=== PATIENT | female | born 1955 | race African-American/Black ===

== ENCOUNTER 2017-07-07 15:18 | Emergency (ER) | payer BC, MEDICAID ==
[~2017-07-07] VITALS: Ht 160 cm; Wt 90.9 kg
[~2017-07-07 15:18] MED LIST: ALBU8.5H IH; ASA3 PO; LISI-661 PO; SYMB8060 IH; TRAZ-144 PO
[2017-07-07] MEDS ORDERED: IPRATROPIUM BROMIDE 0.5 MG/2.5 ML NEB SOLUTION NEB ONE (17:15)
[2017-07-07] MEDS ORDERED: ALBUTEROL SULFATE 2.5 MG/0.5 ML NEB SOLUTION NEB ONE (17:15)
[2017-07-07] MEDS ORDERED: 0.9% SODIUM CHLORIDE 5 ML NEB SOLUTION NEB ONE (17:16)
[2017-07-07] MEDS ORDERED: ALBUTEROL SULFATE HFA 90 MCG/PUFF 8 GM INHALER IH ONE (17:30)
[2017-07-07 18:34] VITALS: BP 155/89
== END 2017-07-07 18:36 | disposition home or self-care (01) ==
LOC: EMS 15:19
DX: J45.909 Unspecified asthma, uncomplicated (principal); L85.3 Xerosis cutis; I10 Essential (primary) hypertension; Z79.82 Long term (current) use of aspirin; Z79.899 Other long term (current) drug therapy
CPT/HCPCS: 94640; 99284; J7613; J3535

== ENCOUNTER 2017-08-18 12:35 | Emergency (ER) | payer BC, OTHER ==
[~2017-08-18] VITALS: Ht 162.6 cm; Wt 81.8 kg
[~2017-08-18 12:35] MED LIST changes: -ALBU8.5H IH; +ALBU8.5H8 IH; -ASA3 PO; +ASPI-989 PO
[2017-08-18 13:17] LABS: BASOPHILS % (AUTO) 0.5 % (0.0-2.0); EOSINOPHILS % (AUTO) 2.9 % (1.0-6.0); HEMATOCRIT 40.1 % (36-46); HEMOGLOBIN 13.5 g/dL (12.0-16.0); LYMPHOCYTES # (AUTO) 2.9 K/uL (1.0-4.8); LYMPHOCYTES % (AUTO) 27.9 % (22.0-44.0); MEAN CORPUSCULAR HEMOGLOBIN 29.6 pg (26.0-34.0); MEAN CORPUSCULAR HGB CONC 33.7 G/dL (31.0-37.0); MEAN CORPUSCULAR VOLUME 88 fL (80-100); MONOCYTES # (AUTO) 0.5 K/uL (0.1-1.0); MONOCYTES % (AUTO) 4.7 % (2.0-9.0); NEUTROPHILS # (AUTO) 6.7 K/uL (1.8-7.7); PLATELET COUNT (AUTO) 294 K/uL (150-450); RED BLOOD CELL COUNT(AUTO) 4.58 MIL/uL (4.00-5.20); RED CELL DISTRIBUTION WIDTH 13.6 % (11.5-14.5); WHITE BLOOD COUNT (AUTO) 10.5 K/uL (4.5-11.0)
[2017-08-18 13:47] LABS: ANION GAP 11 mmol/L (8-16); CALCIUM, TOTAL 9.2 mg/dL (8.8-10.5); CARBON DIOXIDE 26 mmol/L (22-29); CHLORIDE 105 mmol/L (98-107); CREATININE 0.76 mg/dL (0.60-1.30); GLOMERULAR FILTR. RATE CALC > 60 mL/min (>60); POTASSIUM 3.2 mmol/L (3.5-5.1); UREA NITROGEN, BLOOD 8 mg/dL (7-18)
[2017-08-18 13:49] LABS: SODIUM SERUM 142 mmol/L (136-145)
[2017-08-18 13:51] LABS: ALANINE AMINOTRANSFERASE 23 U/L (12-78); ALBUMIN 3.7 g/dL (3.4-5.0); ASPARTATE AMINOTRANSFERASE 19 U/L (15-37); BILIRUBIN,TOTAL 0.3 mg/dL (0.1-1.0); TOTAL PROTEIN, SERUM 7.6 g/dL (6.4-8.2)
[2017-08-18] MEDS ORDERED: POTASSIUM CHLORIDE 20 MEQ ER TABLET PO ONE (14:30)
[2017-08-18] MEDS ORDERED: KETOROLAC TROMETHAMINE 30 MG/ML VIAL IVP ONE (14:30)
[2017-08-18] MEDS ORDERED: CYCLOBENZAPRINE HCL 10 MG TABLET PO ONE (14:30)
[2017-08-18] MEDS ORDERED: SODIUM CHLORIDE 0.9% 100 ML ONE (14:47)
[2017-08-18] MEDS ORDERED: IOVERSOL 350 MG/ML 100 ML VIAL ONE (14:47)
[2017-08-18] MEDS ORDERED: MORPHINE SULFATE 4 MG/ML SYRINGE IVP ONE (15:45)
[2017-08-18] MEDS ORDERED: OxyCODONE HCL/ACETAMINOPHEN 5-325 MG TABLET PO ONE (16:15)
[2017-08-18 17:30] VITALS: BP 164/88
== END 2017-08-18 17:38 | disposition home or self-care (01) ==
LOC: EMS 12:37
DX: R07.9 Chest pain, unspecified (principal); E87.6 Hypokalemia; J45.909 Unspecified asthma, uncomplicated; I11.9 Hypertensive heart disease without heart failure
CPT/HCPCS: 36415; 71010; 71275; 80053; 84484; 85025; 93005; 96374; 99285; J1885; J7050; Q9967